=== PATIENT | male | born 1950 ===

== ENCOUNTER → 2020-10-21 14:07 | Outpatient (CLI) | payer OTHER | END | disposition home or self-care (01) | LOC: LAB 14:07 | PROVIDERS: ATTEND General Practice | DX: E03.8 Other specified hypothyroidism (principal) ==

== ENCOUNTER 2021-11-30 12:48 | Outpatient (CLI) | payer OTHER | END 2021-11-30 12:57 | disposition home or self-care (01) | LOC: RAD 12:48 | PROVIDERS: ATTEND General Practice | DX: M06.4 Inflammatory polyarthropathy (principal); M25.562 Pain in left knee; M25.561 Pain in right knee ==